=== PATIENT | female | born 1990 | race Caucasian/White ===

== ENCOUNTER 2016-08-24 04:21 | Emergency (ER) | payer MEDICAID, OTHER ==
[~2016-08-24] VITALS: Ht 165.1 cm; Wt 62.6 kg
[2016-08-24] MEDS ORDERED: LIDOCAINE 1% INJ 20 ML (XYLOCAINE) VIAL INJ STA (04:34)
[2016-08-24] MEDS ORDERED: L.E.T. SYRINGE 5 ML MM STA (04:34)
--- NOTE | 2016-08-24 04:42 | ED Lower Extremity ---
General Stated Complaint: RT FOOT INJURY,LAC Source: patient Exam Limitations: no limitations History of Present Illness Time seen by provider: 04:30 Initial Comments Here with laceration to the right foot medially at the bridge. States that she stepped on a broken cup. Denies other injury. Tetanus up-to-date. Onset: just prior to arrival Severity: moderate Method of Injury: incised Modifying Factors: Improves With Immobilization, Worse With Movement Allergies and Home Medications Allergies Coded Allergies: Iodine and Iodide Containing Produc (Verified Allergy, Unknown, 08/24/16) latex (Verified Allergy, Unknown, 08/24/16) povidone-iodine (Verified Allergy, Unknown, 08/24/16) soap (Verified Allergy, Unknown, 08/24/16) Constitutional: see HPINo chills, No fever Respiratory: no symptoms reported Cardiovascular: no symptoms reported Musculoskeletal: No joint pain, muscle pain Skin: see HPINo change in color, lesions Past Wmmkssq-Jrcnnb-Ratghg Hx Patient Social History Alcohol Use: Denies Use Recreational Drug Use: No Smoking Status: Current Everyday Smoker Recent Foreign Travel: No Contact w/Someone Who Travel: No Surgeries HX Surgeries: No Respiratory Hx Respiratory Disorders: No Cardiovascular Hx Cardiac Disorders: No Neurological Hx Neurological Disorders: No Genitourinary Hx Genitourinary Disorders: No Gastrointestinal Hx Gastrointestinal Disorders: No Musculoskeletal Hx Musculoskeletal Disorders: No Endocrine Hx Endocrine Disorders: No HEENT HX ENT Disorders: No Cancer Hx Cancer: No Psychosocial Hx Psychiatric Problems: Yes Behavioral Health Disorders: Anxiety, Depression Reviewed Nursing Assessment Reviewed/Agree w Nursing PMH: Yes Physical Exam Vital Signs Vital Sign - Last 12Hours 08/24/16 04:28 Temp 97.4 Pulse 69 Resp 20 B/P 122/87 Pulse Ox 98 O2 Delivery Room Air Capillary Refill : General Appearance: WD/WN no apparent distress Cardiovascular: regular rate, rhythm no murmur Respiratory: lungs clear normal breath sounds Feet: right foot other (3 cm laceration to the medial aspect of the foot at the dorsal medial surface. Distal sensation and movement is intact. Bleeding controlled.) Neurologic/Psychiatric: alert oriented x 3 Skin: warm/dry other (laceration as described above.) Laceration Repair : Wound Location: Lower Extremities Other Wound Location Right medial aspect of the foot Wound Length (cm): 3 Wound's Depth, Shape: superficial Wound Explored: contaminated Irrigated w/ Saline (ccs): 250 Betadine Prep?: No (Hibiclens) Anesthesia: 1% Lidocaine Volume Anesthetic (ccs): 5 Wound Debrided: minimal Suture: Prolene Suture Size: 4-0 Number of Sutures: 7 Layer Closure?: 1 Number Deep Layer Sutures: 0 Progress Cleaned with Hibiclens and flushed with copious saline. Suture repair. Covered with antibiotic ointment and dressing. Progress/Results/Core Measures Results/Orders My Orders Orders-GENA DAO MD Let Solution (Let Solution) (08/24/16 04:34) Lidocaine 1% Injection (Xylocaine 1% Inj (08/24/16 04:34) Vital Signs/I&O Vital Sign - Last 12Hours 08/24/16 08/24/16 04:28 04:43 Temp 97.4 97.4 Pulse 69 Resp 20 B/P 122/87 Pulse Ox 98 O2 Delivery Room Air Progress Note : Progress Note Seen and evaluated. LET applied to wound. Further anesthetic with 1 percent lidocaine injected. Wound cleaned and sutured. Discharged home with return precautions. Patient verbalize understanding instructions and agreement with plan. Departure Impression Impression: Primary Impression: Laceration of right foot excluding toes without complication Qualified Code: S91.311A - Laceration without foreign body, right foot, initial encounter Disposition: 01 HOME, SELF-CARE Condition: Improved Departure-Patient Inst. Decision time for Depature: 04:40 Referrals: [facility] (PCP) Primary Care Physician Patient Instructions: Laceration Repair With Stitches (DC) Add. Discharge Instructions: Keep wound clean and dry except for daily mild cleansing of wound. You may shower but do not soak wound in bathtub or any other body of water. Sutures out in 10-12 days. Use antibiotic ointment and Band-Aid over wound daily for the next 5-6 days and then you may cover just with the Band-Aid. Return for worse pain, fever, foul-smelling drainage, red streaks up the leg or other concerns as needed. You may use ibuprofen 800 mg every 8 hours as needed for pain. You may use Tylenol 1000 mg every 8 hours as needed for pain. GENA DAO MD Aug 24, 2016 04:42
[2016-08-24 05:33] VITALS: BP 122/87
== END 2016-08-24 05:33 | disposition home or self-care (01) ==
LOC: ER 04:25
DX: S91.311A Laceration without foreign body, right foot, initial encounter (principal); W25.XXXA Contact with sharp glass, initial encounter; Y99.8 Other external cause status
CPT/HCPCS: 12002

== ENCOUNTER 2020-11-16 22:16 | Emergency (ER) | payer SELFPAY ==
[~2020-11-16] VITALS: Ht 165.1 cm; Wt 58.1 kg
[2020-11-16 22:58] LABS: BASOPHILS # (AUTO) 0.1 10^3/uL (0.0-0.1); BASOPHILS % (AUTO) 1 % (0-10); EOSINOPHILS # (AUTO) 0.2 10^3/uL (0.0-0.3); EOSINOPHILS % (AUTO) 3 % (0-10); HEMATOCRIT 42 % (35-52); HEMOGLOBIN 14.2 g/dL (11.5-16.0); LYMPHOCYTES # (AUTO) 2.2 10^3/uL (1.0-4.0); LYMPHOCYTES % (AUTO) 29 % (12-44); MEAN CORPUSCULAR HEMOGLOBIN 31 pg (25-34); MEAN CORPUSCULAR HGB CONC 34 g/dL (32-36); MEAN CORPUSCULAR VOLUME 91 fL (80-99); MEAN PLATELET VOLUME 10.9 fL (9.0-12.2); MONOCYTES # (AUTO) 0.6 10^3/uL (0.0-1.0); MONOCYTES % (AUTO) 8 % (0-12); NEUTROPHILS # (AUTO) 4.5 10^3/uL (1.8-7.8); NEUTROPHILS % (AUTO) 59 % (42-75); PLATELET COUNT 249 10^3/uL (130-400); WHITE BLOOD COUNT 7.6 10^3/uL (4.3-11.0)
[2020-11-16 23:04] LABS: ALANINE AMINOTRANSFERASE 20 U/L (0-55); ALBUMIN 3.2 GM/DL (3.2-4.5); ALKALINE PHOSPHATASE 101 U/L (40-136); BILIRUBIN,TOTAL 0.1 MG/DL (0.1-1.0); BUN/CREATININE RATIO 18; CALCIUM 8.9 MG/DL (8.5-10.1); CARBON DIOXIDE 22 MMOL/L (21-32); CHLORIDE 106 MMOL/L (98-107); CREATININE SERUM 1.04 MG/DL (0.60-1.30); GFR ESTIMATED > 60; GLUCOSE 96 MG/DL (70-105); SODIUM 137 MMOL/L (135-145); TOTAL PROTEIN 6.1 GM/DL (6.4-8.2)
[2020-11-16 23:08] LABS: AMPHETAMINE SCREEN, URINE NEGATIVE (NEGATIVE); BARBITURATE SCREEN URINE NEGATIVE (NEGATIVE); BENZODIAZEPINES SCREEN URINE NEGATIVE (NEGATIVE); CANNABINOID SCREEN, URINE NEGATIVE (NEGATIVE); COCAINE SCREEN URINE NEGATIVE (NEGATIVE); METHADONE STAT NEGATIVE (NEGATIVE); METHAMPHETAMINE SCREEN URINE S NEGATIVE (NEGATIVE); OPIATE SCREEN URINE NEGATIVE (NEGATIVE); OXYCODONE STAT NEGATIVE (NEGATIVE); PROPOXYPHENE STAT NEGATIVE (NEGATIVE); TRICYCLIC ANTIDEPRESSANTS SCRE NEGATIVE (NEGATIVE)
[2020-11-17] MEDS ORDERED: FLUT9.9S NS (00:14)
[2020-11-17] MEDS ORDERED: AMOX-358 PO (00:14)
[2020-11-17] MEDS ORDERED: PRD20T PO (00:14)
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
[2020-11-17] MEDS ORDERED: KETOROLAC 60 MG/2 ML VIAL IM ONE (00:15)
[2020-11-17 00:43] VITALS: BP 138/90
--- NOTE | 2020-11-17 07:12 | Diagnostic Imaging Report ---
PROCEDURE: CT head without contrast. TECHNIQUE: Multiple contiguous axial images were obtained through the brain without the use of intravenous contrast. Auto Exposure Controls were utilized during the CT exam to meet ALARA standards for radiation dose reduction. INDICATION: Hypertension, headache. CORRELATION: None FINDINGS: There is no midline shift or mass effect. The ventricles and sulci are unremarkable. No evidence for acute intracranial hemorrhage, abnormal extra-axial fluid collections or cerebral edema is present. The basilar cisterns are unremarkable. The bony calvarium is intact. Moderate fluid and/or thickening within left maxillary sinus. IMPRESSION: Negative appearing noncontrast CT of the head. Likely acute on chronic left maxillary sinusitis. Initial report was provided by [facility]. Dictated by: Dictated on workstation # [id number]
== END 2020-11-17 00:43 | disposition home or self-care (01) ==
LOC: EDUNIT# 22:16 → ER 22:17
DX: J01.00 Acute maxillary sinusitis, unspecified (principal); R03.0 Elevated blood-pressure reading, without diagnosis of hypertension; F17.210 Nicotine dependence, cigarettes, uncomplicated; Z59.0 Homelessness
CPT/HCPCS: 70450; 80053; 80306; 84703; 85025; 93005; 93041; 99284; G0480; 36415; 80320

== ENCOUNTER 2021-11-25 18:19 | Emergency (ER) | payer SELFPAY ==
[~2021-11-25] VITALS: Ht 156 cm; Wt 46.0 kg
[~2021-11-25 18:19] MED LIST: AMOX-358 PO; FLUT9.9S NS; PRD20T PO
[2021-11-25 18:20] VITALS: BP 133/103
--- NOTE | 2021-11-25 18:31 | ED General ---
General Chief Complaint: Neurological Problems Stated Complaint: SEIZURE Nursing Triage Note: PT BROUGHT IN BY [facility] FROM [facility] WITH COMPLAINT OF SEIZURE. PT WAS IN WAITING ROOM WHEN SHE HAD A SEIZURE. PT ADMITS TO USING METH AND HEROIN TODAY. SIGNIFICANT OTHER STATES TOOK PT TO [facility] FOR MEDICATION REFILL. History of Present Illness Date Seen by Provider: Nov 25, 2021 Time Seen by Provider: 18:31 Initial Comments 31-year-old female with PMH of BPD/drug abuse, is brought in by EMS from the clinic with complaints of possible seizure in the waiting room of the clinic. Patient's boyfriend is with her and states that he is unsure of her past medical history except that he knows that she uses meth, but he thought she was clean for the past 3 days. But patient told him that she used meth and heroin today, and patient's boyfriend is surprised about the heroin because he does not know her to use that. Patient boyfriend states that she has not been taking her medications for the past 1 year, and he is unsure about her PMH. Patient appears to be altered and an unreliable historian at this time due to drug usage. Patient is complaining about abdominal pain. Allergies and Home Medications Allergies Coded Allergies: Iodine and Iodide Containing Produc (Verified Allergy, Unknown, 08/24/16) latex (Verified Allergy, Unknown, 08/24/16) povidone-iodine (Verified Allergy, Unknown, 08/24/16) soap (Verified Allergy, Unknown, 08/24/16) Patient Home Medication List Home Medication List Reviewed: Yes Amoxicillin/Potassium Clav (Augmentin 875-125 Tablet) 1 Each Tablet, 1 EACH PO BID Prescribed by: SHANNA KAY on 11/17/2013 Fluticasone Propionate (Flonase Allergy Relief) 9.9 Ml [place].susp, 2 SPRAY NS DAILY Prescribed by: SHANNA KAY on 11/17/2013 Prednisone (Prednisone) 20 Mg Tab, 40 MG PO DAILY Prescribed by: SHANNA KAY on 11/17/2013 Review of Systems Review of Systems Constitutional: other (confusion) EENTM: no symptoms reported Respiratory: no symptoms reported Cardiovascular: no symptoms reported Gastrointestinal: RLQ, LLQ Genitourinary: no symptoms reported Musculoskeletal: no symptoms reported Skin: no symptoms reported Psychiatric/Neurological: Other (drug use) Hematologic/Lymphatic: No Symptoms Reported Immunological/Allergic: no symptoms reported Past Dlvemte-Ltqjkx-Vpjqhz Hx Patient Social History Tobacco Use?: Yes Use of E-Cig and/or Vaping dev: No Substance use?: Yes Substance type: Amphetamines, Methamphetamine, Opiates/Opioids Additional substance use comme: HEROIN Alcohol Use?: No Pt feels they are or have been: No Immunizations Up To Date Tetanus Booster (TDap): Less than 5yrs Seasonal Allergies Seasonal Allergies: No Past Medical History Surgeries: Yes ( X 1) Section, Gallbladder Respiratory: No Cardiac: No Neurological: No 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 10/2020, THEN [facility] [place] AT DISMISSAL Physical Exam Vital Signs Vital Signs - First Documented 11/25/21 18:20 Temp 36.3 Pulse 73 Resp 12 B/P (MAP) 133/103 (113) Pulse Ox 98 O2 Delivery Room Air Capillary Refill : Less Than 3 Seconds Height, Weight, BMI Height: 5'5" Weight: 138lbs. oz. 62.352502va; 18.00 BMI Method:Estimated General Appearance: Thin, Other (confusion) Eyes: Bilateral Eye Normal Inspection, Bilateral Eye PERRL, Bilateral Eye EOMI HEENT: PERRL/EOMI Neck: Full Range of Motion, Normal Inspection, Non Tender, Supple Respiratory: Chest Non Tender, Lungs Clear, Normal Breath Sounds, No Re spiratory Distress Cardiovascular: Regular Rate, Rhythm, No Edema Gastrointestinal: Normal Bowel Sounds, No Organomegaly, Soft, Tenderness (RLQ and LLQ tenderness) Back: Normal Inspection, No CVA Tenderness Extremity: Normal Range of Motion Neurologic/Psychiatric: Alert, No Motor/Sensory Deficits, Normal 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, 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 Norm as Tested, Other (Altered mental status and AOx 2) Skin: Normal Color, Warm/Dry Procedures/Interventions Suture Size: 4-0 Progress/Results/Core Measures Suspected Sepsis SIRS Temperature: Pulse: 73 Respiratory Rate: 12 Laboratory Tests 11/25/21 18:25: White Blood Count 10.8 Blood Pressure 133 /103 Mean: 113 Laboratory Tests 11/25/21 18:25: Creatinine 1.08, Platelet Count 300, Total Bilirubin 0.2 Results/Orders Lab Results Laboratory Tests Test 11/25/21 18:25 11/25/21 19:08 Range/Units White Blood Count 10.8 4.3-11.0 10^3/uL Red Blood Count 4.48 3.80-5.11 10^6/uL Hemoglobin 14.1 11.5-16.0 g/dL Hematocrit 41 35-52 % Mean Corpuscular Volume 91 80-99 fL Mean Corpuscular Hemoglobin 32 25-34 pg Mean Corpuscular Hemoglobin Concent 35 32-36 g/dL Red Cell Distribution Width 12.5 10.0-14.5 % Platelet Count 300 130-400 10^3/uL Mean Platelet Volume 11.5 9.0-12.2 fL Immature Granulocyte % (Auto) 0 % Neutrophils (%) (Auto) 58 42-75 % Lymphocytes (%) (Auto) 28 12-44 % Monocytes (%) (Auto) 9 0-12 % Eosinophils (%) (Auto) 4 0-10 % Basophils (%) (Auto) 1 0-10 % Neutrophils # (Auto) 6.3 1.8-7.8 10^3/uL Lymphocytes # (Auto) 3.0 1.0-4.0 10^3/uL Monocytes # (Auto) 0.9 0.0-1.0 10^3/uL Eosinophils # (Auto) 0.5 H 0.0-0.3 10^3/uL Basophils # (Auto) 0.1 0.0-0.1 10^3/uL Immature Granulocyte # (Auto) 0.0 0.0-0.1 10^3/uL Sodium Level 137 135-145 MMOL/L Potassium Level 4.0 3.6-5.0 MMOL/L Chloride Level 104 98-107 MMOL/L Carbon Dioxide Level 23 21-32 MMOL/L Anion Gap 10 5-14 MMOL/L Blood Urea Nitrogen 21 H 7-18 MG/DL Creatinine 1.08 0.60-1.30 MG/DL Estimat Glomerular Filtration Rate 71 BUN/Creatinine Ratio 19 Glucose Level 128 H 70-105 MG/DL Calcium Level 8.7 8.5-10.1 MG/DL Corrected Calcium 9.5 8.5-10.1 MG/DL Magnesium Level 2.2 1.6-2.4 MG/DL Total Bilirubin 0.2 0.1-1.0 MG/DL Aspartate Amino Transf (AST/SGOT) 40 H 5-34 U/L Alanine Aminotransferase (ALT/SGPT) 34 0-55 U/L Alkaline Phosphatase 108 40-136 U/L Troponin I < 0.028 <0.028 NG/ML Total Protein 5.8 L 6.4-8.2 GM/DL Albumin 3.0 L 3.2-4.5 GM/DL Lipase 316 H 8-78 U/L Acetaminophen Level < 10 L 10-30 UG/ML Serum Alcohol 15 H <10 MG/DL Urine Color YELLOW Urine Clarity CLEAR Urine pH 6.0 5-9 Urine Specific [place] 1.025 H 1.016-1.022 Urine Protein 3+ H NEGATIVE Urine Glucose (UA) NEGATIVE NEGATIVE Urine Ketones NEGATIVE NEGATIVE Urine Nitrite NEGATIVE NEGATIVE Urine Bilirubin NEGATIVE NEGATIVE Urine Urobilinogen 0.2 < = 1.0 MG/DL Urine Leukocyte Esterase NEGATIVE NEGATIVE Urine RBC (Auto) TRACE-I H NEGATIVE Urine RBC 0-2 /HPF Urine WBC 0-2 /HPF Urine Squamous Epithelial Cells 2-5 /HPF Urine Renal Epithelial Cells NONE /HPF Urine Crystals NONE /LPF Urine Bacteria TRACE /HPF Urine Casts NONE /LPF Urine Mucus NEGATIVE /LPF Urine Culture Indicated NO Urine Test NEGATIVE NEGATIVE Urine Opiates Screen NEGATIVE NEGATIVE Urine Oxycodone Screen NEGATIVE NEGATIVE Urine Methadone Screen NEGATIVE NEGATIVE Urine Propoxyphene Screen NEGATIVE NEGATIVE Urine Barbiturates Screen NEGATIVE NEGATIVE Ur Tricyclic Antidepressants Screen NEGATIVE NEGATIVE Urine Phencyclidine Screen NEGATIVE NEGATIVE Urine Amphetamines Screen POSITIVE H NEGATIVE Urine Methamphetamines Screen POSITIVE H NEGATIVE Urine Benzodiazepines Screen NEGATIVE NEGATIVE Urine Cocaine Screen NEGATIVE NEGATIVE Urine Cannabinoids Screen POSITIVE H NEGATIVE My Orders Orders - YAHIR CASTLE MD Acetaminophen (11/25/21 18:44) Alcohol (11/25/21 18:44) Cbc With Automated Diff (11/25/21 18:44) Comprehensive Metabolic Panel (11/25/21 18:44) Drug Screen Stat (Urine) (11/25/21 18:44) Hcg,Qualitative Urine (11/25/21 18:44) Lipase (11/25/21 18:44) Magnesium (11/25/21 18:44) Ua Culture If Indicated (11/25/21 18:44) Troponin I Dustin (11/25/21 18:44) Ed Iv/Invasive Line Start (11/25/21 18:46) Ns Iv 1000 Ml (Sodium Chloride 0.9%) (11/25/21 19:00) Prolactin (11/25/21 19:03) Ekg Tracing (11/25/21 19:08) Continuous Ekg Monitoring (11/25/21 19:08) Vital Signs/I&O 11/25/21 11/25/21 18:20 19:35 Temp 36.3 Pulse 73 Resp 12 B/P (MAP) 133/103 (113) 173/114 Pulse Ox 98 O2 Delivery Room Air 11/26/21 00:00 Intake Total 20 ml Balance 20 ml Capillary Refill : Less Than 3 Seconds Blood Pressure Mean: 113 Progress Note : Progress Note 1. DRUG INTOXICATION/ ALTERED MENTAL STATUS: - CT HEAD - UDS/ UA: positive for methamphetamines and marijuana - Labs unremarkable except for s. alcohol of 15 - NS IVF bolus - Pt left AMA in spite of risks and benefits explained. Her boyfriend tried to convince her to stay but she will not listen. 2. POSSIBLE SEIZURE: - Work-up as above - Since pt's episode occurred within 20-30 min ago, will check prolactin level 3. ABDOMINAL PAIN: - CT ABD & PELVIS: Not done since pt left AMA Diagnostic Imaging Diagonstic Imaging: CT Plain Films/CT/US/NM/MRI: abdomen, head Departure Impression Primary Impression: Drug intoxication Qualified Codes: F19.921 - Other psychoactive substance use, unspecified with intoxication with delirium Additional Impression: Left against medical advice Disposition: 07 AGAINST MEDICAL ADVICE Condition: Against Medical Advice Departure-Patient Inst. Referrals: NO,LOCAL PHYSICIAN (PCP/Family) Primary Care Physician YAHIR CASTLE MD Nov 25, 2021 18:31
[2021-11-25 18:50] LABS: BASOPHILS # (AUTO) 0.1 10^3/uL (0.0-0.1); BASOPHILS % (AUTO) 1 % (0-10); EOSINOPHILS # (AUTO) 0.5 10^3/uL (0.0-0.3); EOSINOPHILS % (AUTO) 4 % (0-10); HEMATOCRIT 41 % (35-52); HEMOGLOBIN 14.1 g/dL (11.5-16.0); LYMPHOCYTES % (AUTO) 28 % (12-44); MEAN CORPUSCULAR HEMOGLOBIN 32 pg (25-34); MEAN CORPUSCULAR HGB CONC 35 g/dL (32-36); MEAN CORPUSCULAR VOLUME 91 fL (80-99); MEAN PLATELET VOLUME 11.5 fL (9.0-12.2); MONOCYTES # (AUTO) 0.9 10^3/uL (0.0-1.0); MONOCYTES % (AUTO) 9 % (0-12); NEUTROPHILS # (AUTO) 6.3 10^3/uL (1.8-7.8); NEUTROPHILS % (AUTO) 58 % (42-75); PLATELET COUNT 300 10^3/uL (130-400); WHITE BLOOD COUNT 10.8 10^3/uL (4.3-11.0)
[2021-11-25] MEDS ORDERED: NS IV 1000 ML 1,000 ML IV SCH (19:00)
[2021-11-25 19:04] LABS: CHLORIDE 104 MMOL/L (98-107); SODIUM 137 MMOL/L (135-145)
[2021-11-25 19:06] LABS: CALCIUM 8.7 MG/DL (8.5-10.1)
[2021-11-25 19:07] LABS: GLUCOSE 128 MG/DL (70-105); TOTAL PROTEIN 5.8 GM/DL (6.4-8.2)
[2021-11-25 19:08] LABS: CARBON DIOXIDE 23 MMOL/L (21-32)
[2021-11-25 19:09] LABS: BILIRUBIN,TOTAL 0.2 MG/DL (0.1-1.0)
[2021-11-25 19:10] LABS: ALKALINE PHOSPHATASE 108 U/L (40-136)
[2021-11-25 19:11] LABS: CREATININE SERUM 1.08 MG/DL (0.60-1.30); GFR ESTIMATED 71
[2021-11-25 19:12] LABS: BILIRUBIN,URINE NEGATIVE (NEGATIVE); CLARITY,URINE CLEAR; COLOR,URINE YELLOW; GLUCOSE, URINE (UA) NEGATIVE (NEGATIVE); KETONES,URINE NEGATIVE (NEGATIVE); LEUKOCYTE ESTERASE ,URINE NEGATIVE (NEGATIVE); NITRITE,URINE NEGATIVE (NEGATIVE); PROTEIN,URINE 3+ (NEGATIVE)
[2021-11-25 19:12] LABS: ACETAMINOPHEN < 10 UG/ML (10-30); BUN/CREATININE RATIO 19
[2021-11-25 19:13] LABS: ALANINE AMINOTRANSFERASE 34 U/L (0-55)
[2021-11-25 19:14] LABS: MAGNESIUM 2.2 MG/DL (1.6-2.4)
[2021-11-25 19:15] LABS: LIPASE 316 U/L (8-78)
[2021-11-25 19:19] LABS: BACTERIA,URINE TRACE /HPF; RBC,URINE 0-2 /HPF; WBC,URINE 0-2 /HPF
[2021-11-25 19:21] LABS: HCG,QUALITATIVE URINE NEGATIVE (NEGATIVE)
[2021-11-25 19:27] LABS: AMPHETAMINE SCREEN, URINE POSITIVE (NEGATIVE); BARBITURATE SCREEN URINE NEGATIVE (NEGATIVE); BENZODIAZEPINES SCREEN URINE NEGATIVE (NEGATIVE); CANNABINOID SCREEN, URINE POSITIVE (NEGATIVE); COCAINE SCREEN URINE NEGATIVE (NEGATIVE); METHADONE STAT NEGATIVE (NEGATIVE); OPIATE SCREEN URINE NEGATIVE (NEGATIVE); OXYCODONE STAT NEGATIVE (NEGATIVE); PROPOXYPHENE STAT NEGATIVE (NEGATIVE); TRICYCLIC ANTIDEPRESSANTS SCRE NEGATIVE (NEGATIVE)
== END 2021-11-25 19:57 ==
LOC: EDUNIT# 18:19 → ER 18:22
DX: F12.121 Cannabis abuse with intoxication delirium (principal); F15.121 Other stimulant abuse with intoxication delirium; R10.31 Right lower quadrant pain; R10.32 Left lower quadrant pain; Z91.14 Patient's other noncompliance with medication regimen
CPT/HCPCS: 80053; 80306; 81000; 83690; 83735; 84146; 84484; 84703; 85025; 93005; 99283; G0480 ×2; 36415; 80320; 80329

== ENCOUNTER 2021-11-26 04:12 | Observation (INO) | payer SELFPAY ==
[~2021-11-26] VITALS: Ht 165.1 cm; Wt 46.5 kg
--- NOTE | 2021-11-26 04:21 | ED General ---
General Chief Complaint: General Problems/Pain Stated Complaint: AMS History of Present Illness Date Seen by Provider: Nov 26, 2021 Time Seen by Provider: 04:20 Initial Comments This is pt' second ER visit during my shift. Pt left AMA earlier in the evening. This time pt was brought back by EMS since the police found her wandering around town and seemed confused to them. Boyfriend convinced her to come back to the ER. Pt denies using drugs again after she left AMA. Denies fever, and pt still altered. Unable to obtain a history from pt in this state. Denies fever, abdominal pain, chest pain, nausea, vomiting. NOTE FROM EARLIER VISIT TODAY: 31-year-old female with PMH of BPD/drug abuse, is brought in by EMS from the clinic with complaints of possible seizure in the waiting room of the clinic. Patient's boyfriend is with her and states that he is unsure of her past medical history except that he knows that she uses meth, but he thought she was clean for the past 3 days. But patient told him that she used meth and heroin today, and patient's boyfriend is surprised about the heroin because he does not know her to use that. Patient boyfriend states that she has not been taking her medications for the past 1 year, and he is unsure about her PMH. Patient appe ars to be altered and an unreliable historian at this time due to drug usage. Patient is complaining about abdominal pain. Allergies and Home Medications Allergies Coded Allergies: Iodine and Iodide Containing Produc (Verified Allergy, Unknown, 08/24/16) latex (Verified Allergy, Unknown, 08/24/16) povidone-iodine (Verified Allergy, Unknown, 08/24/16) soap (Verified Allergy, Unknown, 08/24/16) Patient Home Medication List Home Medication List Reviewed: Yes Amoxicillin/Potassium Clav (Augmentin 875-125 Tablet) 1 Each Tablet, 1 EACH PO BID Prescribed by: SHANNA KAY on 11/17/2013 Fluticasone Propionate (Flonase Allergy Relief) 9.9 Ml [place].susp, 2 SPRAY NS DAILY Prescribed by: SHANNA KAY on 11/17/2013 Prednisone (Prednisone) 20 Mg Tab, 40 MG PO DAILY Prescribed by: SHANNA KAY on 11/17/2013 Review of Systems Review of Systems Constitutional: other (confused) EENTM: no symptoms reported Respiratory: no symptoms reported Cardiovascular: no symptoms reported Gastrointestinal: no symptoms reported Genitourinary: no symptoms reported Musculoskeletal: no symptoms reported Skin: no symptoms reported Psychiatric/Neurological: Other (AMS) Hematologic/Lymphatic: No Symptoms Reported Immunological/Allergic: no symptoms reported Past Bccrmuw-Cxspnu-Makzvd Hx Immunizations Up To Date Tetanus Booster (TDap): Less than 5yrs Seasonal Allergies Seasonal Allergies: No Past Medical History Surgeries: Yes ( X 1) Section, Gallbladder Respiratory: No Cardiac: No Neurological: No 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 oz. 62.502536ue; 18.00 BMI Method:Estimated General Appearance: Other (confused) Eyes: Bilateral Eye Normal Inspection, Bilateral Eye PERRL, Bilateral Eye EOMI HEENT: PERRL/EOMI Neck: Full Range of Motion, Normal Inspection, Non Tender, Supple Respiratory: Chest Non Tender, Lungs Clear Cardiovascular: Regular Rate, Rhythm Gastrointestinal: Normal Bowel Sounds, Soft Neurologic/Psychiatric: Alert, No Motor/Sensory Deficits, Other (AOx2, uncooperative, altered mental status) Skin: Normal Color Procedures/Interventions Suture Size: 4-0 Progress/Results/Core Measures Suspected Sepsis SIRS Temperature: Pulse: Respiratory Rate: Laboratory Tests 11/26/21 04:32: White Blood Count 10.3 Blood Pressure / Mean: Laboratory Tests 11/26/21 04:32: Creatinine 1.03, Platelet Count 306, Total Bilirubin 0.4 Results/Orders Lab Results Laboratory Tests Test 11/26/21 04:32 Range/Units White Blood Count 10.3 4.3-11.0 10^3/uL Red Blood Count 4.51 3.80-5.11 10^6/uL Hemoglobin 14.0 11.5-16.0 g/dL Hematocrit 42 35-52 % Mean Corpuscular Volume 92 80-99 fL Mean Corpuscular Hemoglobin 31 25-34 pg Mean Corpuscular Hemoglobin Concent 34 32-36 g/dL Red Cell Distribution Width 12.5 10.0-14.5 % Platelet Count 306 130-400 10^3/uL Mean Platelet Volume 11.1 9.0-12.2 fL Immature Granulocyte % (Auto) 0 % Neutrophils (%) (Auto) 61 42-75 % Lymphocytes (%) (Auto) 26 12-44 % Monocytes (%) (Auto) 8 0-12 % Eosinophils (%) (Auto) 3 0-10 % Basophils (%) (Auto) 1 0-10 % Neutrophils # (Auto) 6.3 1.8-7.8 10^3/uL Lymphocytes # (Auto) 2.7 1.0-4.0 10^3/uL Monocytes # (Auto) 0.9 0.0-1.0 10^3/uL Eosinophils # (Auto) 0.4 H 0.0-0.3 10^3/uL Basophils # (Auto) 0.1 0.0-0.1 10^3/uL Immature Granulocyte # (Auto) 0.0 0.0-0.1 10^3/uL Sodium Level 139 135-145 MMOL/L Potassium Level 4.1 3.6-5.0 MMOL/L Chloride Level 106 98-107 MMOL/L Carbon Dioxide Level 23 21-32 MMOL/L Anion Gap 10 5-14 MMOL/L Blood Urea Nitrogen 16 7-18 MG/DL Creatinine 1.03 0.60-1.30 MG/DL Estimat Glomerular Filtration Rate 75 BUN/Creatinine Ratio 16 Glucose Level 87 70-105 MG/DL Calcium Level 8.7 8.5-10.1 MG/DL Corrected Calcium 9.5 8.5-10.1 MG/DL Magnesium Level 2.2 1.6-2.4 MG/DL Total Bilirubin 0.4 0.1-1.0 MG/DL Aspartate Amino Transf (AST/SGOT) 37 H 5-34 U/L Alanine Aminotransferase (ALT/SGPT) 34 0-55 U/L Alkaline Phosphatase 97 40-136 U/L Total Protein 5.9 L 6.4-8.2 GM/DL Albumin 3.0 L 3.2-4.5 GM/DL Salicylates Level < 5.0 L 5.0-20.0 MG/DL Acetaminophen Level < 10 L 10-30 UG/ML Serum Alcohol < 10 <10 MG/DL My Orders Orders - YAHIR CASTLE MD Ed Iv/Invasive Line Start (11/26/21 04:21) Ns Iv 1000 Ml (Sodium Chloride 0.9%) (11/26/21 04:30) Acetaminophen (11/26/21 04:21) Alcohol (11/26/21 04:21) Cbc With Automated Diff (11/26/21 04:21) Comprehensive Metabolic Panel (11/26/21 04:21) Magnesium (11/26/21 04:21) Salicylate (11/26/21 04:21) Continuous Ekg Monitoring (11/26/21 04:21) Ekg Tracing (11/26/21 04:21) Vital Signs/I&O 11/26/21 04:32 Temp 37.0 Pulse 70 Resp 18 B/P (MAP) 148/102 (117) Pulse Ox 97 O2 Delivery Room Air Capillary Refill : Progress Note : Progress Note 1. ALTERED MENTAL STATUS: METHAMPHETAMINE INTOXICATION/ MARIJUANA ABUSE: - UDS positive for the above - Labs unremarkable - EKG non-ischemic and NSR - NS IVF bolus - Will admit to Observation . Discussed with Dr Nicholas. Departure Communication (Admissions) Time/Spoke to Admitting Phy: 05:[address] Nicholas and will admit for observation Impression Primary Impression: Altered mental status associated with intoxication Additional Impressions: Methamphetamine intoxication Drug abuse and dependence Marijuana abuse Disposition: 30 STILL A PATIENT Condition: Stable Admissions Decision to Admit Reason: Admit from ER (General) Decision to Admit/Date: Nov 26, 2021 Time/Decision to Admit Time: 05:15 Departure-Patient Inst. Referrals: NO,LOCAL PHYSICIAN (PCP/Family) Primary Care Physician YAHIR CASTLE MD Nov 26, 2021 04:21
[2021-11-26] MEDS: NS IV 1000 ML 1,000 ML IV SCH ×7 (04:35→21:52)
[2021-11-26 04:46] LABS: BASOPHILS # (AUTO) 0.1 10^3/uL (0.0-0.1); BASOPHILS % (AUTO) 1 % (0-10); EOSINOPHILS # (AUTO) 0.4 10^3/uL (0.0-0.3); EOSINOPHILS % (AUTO) 3 % (0-10); HEMATOCRIT 42 % (35-52); LYMPHOCYTES # (AUTO) 2.7 10^3/uL (1.0-4.0); LYMPHOCYTES % (AUTO) 26 % (12-44); MEAN CORPUSCULAR HEMOGLOBIN 31 pg (25-34); MEAN CORPUSCULAR HGB CONC 34 g/dL (32-36); MEAN CORPUSCULAR VOLUME 92 fL (80-99); MEAN PLATELET VOLUME 11.1 fL (9.0-12.2); MONOCYTES # (AUTO) 0.9 10^3/uL (0.0-1.0); MONOCYTES % (AUTO) 8 % (0-12); NEUTROPHILS # (AUTO) 6.3 10^3/uL (1.8-7.8); NEUTROPHILS % (AUTO) 61 % (42-75); PLATELET COUNT 306 10^3/uL (130-400); WHITE BLOOD COUNT 10.3 10^3/uL (4.3-11.0)
[2021-11-26 05:06] LABS: CHLORIDE 106 MMOL/L (98-107); POTASSIUM 4.1 MMOL/L (3.6-5.0); SODIUM 139 MMOL/L (135-145)
[2021-11-26 05:08] LABS: CALCIUM 8.7 MG/DL (8.5-10.1)
[2021-11-26 05:09] LABS: GLUCOSE 87 MG/DL (70-105); TOTAL PROTEIN 5.9 GM/DL (6.4-8.2)
[2021-11-26 05:10] LABS: CARBON DIOXIDE 23 MMOL/L (21-32)
[2021-11-26 05:11] LABS: BILIRUBIN,TOTAL 0.4 MG/DL (0.1-1.0)
[2021-11-26 05:13] LABS: ALKALINE PHOSPHATASE 97 U/L (40-136); CREATININE SERUM 1.03 MG/DL (0.60-1.30); GFR ESTIMATED 75
[2021-11-26 05:14] LABS: BUN/CREATININE RATIO 16
[2021-11-26 05:15] LABS: SALICYLATE < 5.0 MG/DL (5.0-20.0)
[2021-11-26 05:16] LABS: ALANINE AMINOTRANSFERASE 34 U/L (0-55); MAGNESIUM 2.2 MG/DL (1.6-2.4)
[2021-11-26 05:17] LABS: ACETAMINOPHEN < 10 UG/ML (10-30)
[2021-11-26 06:52] VITALS: BP 162/86
[2021-11-26 06:58] VITALS: BP 162/86
[2021-11-26] MEDS ORDERED: CATHETER FLUSH 10 ML SYR IVP PRN (07:00)
[2021-11-26] MEDS ORDERED: RT-ALBUTEROL SULF 2.5 MG/3 ML PRE-MIX VIAL INH PRN (07:15)
[2021-11-26 07:18] VITALS: BP 154/80
--- NOTE | 2021-11-26 09:16 | History & Physical-Hospitalist ---
History of Present Illness HPI/Chief Complaint Patient is a 31-year-old female who presented to the ER due to altered mental status and possible seizure. She is unable to provide me any history. She does briefly open her eyes to physical stimuli but otherwise is quickly back asleep. Because of this all history is obtained from the chart. Apparently she was in the emergency department 2 times last night due to altered mental status. Apparently there was a question of whether she had had a seizure as well. She reported to her boyfriend that she had done heroin and meth. Her UDS on the first ER visit was positive for amphetamines and methamphetamines and not opioids. She was admitted for observation due to altered mental status. Source: patient Exam Limitations: clinical condition Date Seen 11/26/21 Time Seen by a Provider: 09:10 Attending Physician No,Local Physician PCP Admitting Physician: Hussein Nicholas MD Attending Physician: Hussein Nicholas MD Referring Physician Date of Admission Nov 26, 2021 at 05:55 Home Medications & Allergies Home Medications Reviewed patient Home Medication Reconciliation performed by pharmacy medication reconciliations automobile glass technician and/or nursing. Patients Allergies have been reviewed. Allergies Allergies Coded Allergies Iodine and Iodide Containing Produc (Verified Allergy, Unknown, 08/24/16) latex (Verified Allergy, Unknown, 08/24/16) povidone-iodine (Verified Allergy, Unknown, 08/24/16) soap (Verified Allergy, Unknown, 08/24/16) Past Ymjsmbq-Ftpdsk-Xqesvy Hx Patient Social History Tobacco Use?: Yes Substance use?: Yes Substance frequency: Daily Alcohol Use?: Yes Immunizations Up To Date Tetanus Booster (TDap): Unknown Seasonal Allergies Seasonal Allergies: No Current Status status: Unable to obtain status: Unable to obtain Advance Directives: Unable to obtain Primary Language: Serbian Past Medical History Surgeries: Section, Gallbladder Sexually Transmitted Disease: Yes (HPV) HIV/AIDS: No Anxiety, Depression Blood Disorders: No Family Medical History Reviewed Nursing Family Hx ADDITIONAL SOCIAL HISTORY: PT IS HOMELESS OF 11/16/20 WAS IN [facility] 10/2020, THEN IN [facility] [place] AT DISMISSAL Review of Systems Constitutional: see HPI Physical Exam Physical Exam Vital Signs Vital Signs - First Documented 11/26/21 04:32 Temp 37.0 Pulse 70 Resp 18 B/P (MAP) 148/102 (117) Pulse Ox 97 O2 Delivery Room Air Capillary Refill : Height, Weight, BMI Height: 5'5" Weight: 138lbs. oz. 62.512172rg; 18.00 BMI Method:Estimated General Appearance: No Apparent Distress (sleeping soundly), Thin HEENT: Moist Mucous Membranes Neck: Normal Inspection, Supple Respiratory: Lungs Clear, No Respiratory Distress Cardiovascular: Regular Rate, Rhythm, No JVD, No Murmur Gastrointestinal: Normal Bowel Sounds, Non Tender, Soft Extremity: No Calf Tenderness, No Pedal Edema Neurologic/Psychiatric: Alert, Other (drowsy but opens eyes, protecting airway) Results Results/Procedures Labs Laboratory Tests 11/26/21 04:32 Patient resulted labs reviewed. Assessment/Plan Admission Diagnosis Methamphetamine intoxication Admission Status: Observation Assessment and Plan AMS due to methamphetamine intoxication Likely coming down off methamphetamine Protecting airway but too altered to DC at this time Hopefully will arouse later today and can DC home business services officer consulted Diagnosis/Problems Diagnosis/Problems (1) Methamphetamine intoxication Status: Acute (2) Altered mental status associated with intoxication Status: Acute (3) Marijuana abuse Status: Acute MARLENA ARMIJO MD Nov 26, 2021 09:16
[2021-11-26 11:57] VITALS: BP 168/91
[2021-11-26 15:44] VITALS: BP 157/90
[2021-11-26 19:17] VITALS: BP 143/83
[2021-11-27] VITALS: BP 160/89
[2021-11-27] MEDS: NS IV 1000 ML 1,000 ML IV SCH ×3 (02:10→10:38)
[2021-11-27 04:43] VITALS: BP 150/90
[2021-11-27 07:13] VITALS: BP 178/81
[2021-11-27] MEDS ORDERED: amLODIPine 10 MG (NORVASC) TAB PO SCH (09:00)
[2021-11-27 11:39] VITALS: BP 170/106
[2021-11-27 13:47] VITALS: BP 170/106
--- NOTE | 2021-11-27 17:24 | Discharge Summary ---
Discharge Summary Hospital Course Problems/Dx: (1) Methamphetamine intoxication Status: Acute (2) Altered mental status associated with intoxication Status: Acute (3) Marijuana abuse Status: Acute Hospital Course Date of Admission: Nov 26, 2021 at 05:55 Admission Diagnosis : Altered mental status associated with methamphetamine intoxication Family Physician/Provider: Baldo Bowers Physician Date of Discharge: 11/27/21 Discharge Diagnosis: Altered mental status associated with methamphetamine intoxication Hospital Course: Keri Moffett is a 31 year old female who was admitted with altered mental status associated with methamphetamine intoxication. Her workup was unrevealing other than her urine drug screen positive for methamphetamine and cannabis. She was treated with IV fluids and her symptoms resolved by the following morning. She was encouraged to discontinue methamphetamine and cannabis use. She was discharged home in stable condition. She needs to establish with a primary care physician. Labs and Pending Lab Test: Home Meds Active No Active Prescriptions or Reported Medications Assessment/Pt Instructions See instructions Discharge Planning: <30 minutes discharge planning Discharge Instructions Discharge Diet: No Restrictions Activity as Tolerated: Yes Discharge Physical Examination Vital Signs Vital Signs Date Time Temp Pulse Resp B/P (MAP) Pulse Ox O2 Delivery O2 Flow Rate FiO2 11/27/21 13:47 36.6 72 18 170/106 98 Room Air General Appearance: No Apparent Distress, Thin Respiratory: Lungs Clear, Normal Breath Sounds, No Respiratory Distress Cardiovascular: Regular Rate, Rhythm, No Edema, No Murmur Gastrointestinal: Normal Bowel Sounds, Non Tender, Soft Extremity: Normal Inspection, Non Tender, No Pedal Edema Skin: Normal Color, Warm/Dry Neurologic/Psychiatric: Alert, No Motor/Sensory Deficits Allergies: Coded Allergies: Iodine and Iodide Containing Produc (Verified Allergy, Unknown, 08/24/16) latex (Verified Allergy, Unknown, 08/24/16) povidone-iodine (Verified Allergy, Unknown, 08/24/16) soap (Verified Allergy, Unknown, 08/24/16) Discharge Summary Date of Admission Nov 26, 2021 at 05:55 Date of Discharge Nov 27, 2021 at 13:00 Discharge Date: Nov 27, 2021 Discharge Time: 13:00 Admission Diagnosis Methamphetamine intoxication Discharge Diagnosis (1) Methamphetamine intoxication Status: Acute (2) Altered mental status associated with intoxication Status: Acute (3) Marijuana abuse Status: Acute LULA ARGUELLO MD Nov 27, 2021 17:24
== END 2021-11-27 13:00 | disposition home or self-care (01) ==
LOC: EDUNIT# 04:12 → ER 04:16 → 4TH 05:55
PROVIDERS: ADMIT Internal Medicine; ATTEND Internal Medicine
DX: F15.129 Other stimulant abuse with intoxication, unspecified (principal); F12.10 Cannabis abuse, uncomplicated; R41.82 Altered mental status, unspecified; Z59.00 Homelessness unspecified; Z91.040 Latex allergy status; Z88.8 Allergy status to other drugs, medicaments and biological substances; Z91.048 Other nonmedicinal substance allergy status; Z79.52 Long term (current) use of systemic steroids
CPT/HCPCS: 80053; 83735; 85025; 93005; 96361; 99284; G0480 ×3; 36415; 80320; 80329; G0378

== ENCOUNTER 2022-04-14 22:23 | Observation (INO) | payer SELFPAY ==
[~2022-04-14] VITALS: Ht 165 cm; Wt 47.0 kg
[2022-04-14] MEDS ORDERED: LACTATED RINGERS 1,000 ML IV ONE (22:45)
[2022-04-14] MEDS ORDERED: ONDANSETRON 4 MG/2 ML (SDV) Z0FRAN IVP ONE (22:45)
[2022-04-14 22:49] LABS: BILIRUBIN,URINE NEGATIVE (NEGATIVE); CLARITY,URINE CLEAR; COLOR,URINE YELLOW; GLUCOSE, URINE (UA) NEGATIVE (NEGATIVE); KETONES,URINE NEGATIVE (NEGATIVE); LEUKOCYTE ESTERASE ,URINE NEGATIVE (NEGATIVE); NITRITE,URINE NEGATIVE (NEGATIVE); PH,URINE 7.5 (5-9); PROTEIN,URINE 3+ (NEGATIVE)
[2022-04-14 23:00] LABS: BASOPHILS # (AUTO) 0.1 10^3/uL (0.0-0.1); BASOPHILS % (AUTO) 1 % (0-10); EOSINOPHILS # (AUTO) 0.4 10^3/uL (0.0-0.3); EOSINOPHILS % (AUTO) 3 % (0-10); HEMATOCRIT 27 % (35-52); HEMOGLOBIN 9.3 g/dL (11.5-16.0); LYMPHOCYTES # (AUTO) 2.6 10^3/uL (1.0-4.0); LYMPHOCYTES % (AUTO) 23 % (12-44); MEAN CORPUSCULAR HEMOGLOBIN 32 pg (25-34); MEAN CORPUSCULAR HGB CONC 35 g/dL (32-36); MEAN CORPUSCULAR VOLUME 92 fL (80-99); MEAN PLATELET VOLUME 10.8 fL (9.0-12.2); MONOCYTES # (AUTO) 0.8 10^3/uL (0.0-1.0); MONOCYTES % (AUTO) 7 % (0-12); NEUTROPHILS # (AUTO) 7.3 10^3/uL (1.8-7.8); NEUTROPHILS % (AUTO) 65 % (42-75); PLATELET COUNT 278 10^3/uL (130-400); WHITE BLOOD COUNT 11.1 10^3/uL (4.3-11.0)
[2022-04-14 23:04] LABS: BACTERIA,URINE FEW /HPF; RBC,URINE 0-2 /HPF; WBC,URINE RARE /HPF
[2022-04-14 23:08] LABS: AMPHETAMINE SCREEN, URINE POSITIVE (NEGATIVE); BARBITURATE SCREEN URINE NEGATIVE (NEGATIVE); BENZODIAZEPINES SCREEN URINE NEGATIVE (NEGATIVE); CANNABINOID SCREEN, URINE POSITIVE (NEGATIVE); COCAINE SCREEN URINE NEGATIVE (NEGATIVE); METHADONE STAT NEGATIVE (NEGATIVE); OPIATE SCREEN URINE NEGATIVE (NEGATIVE); OXYCODONE STAT NEGATIVE (NEGATIVE); PROPOXYPHENE STAT NEGATIVE (NEGATIVE); TRICYCLIC ANTIDEPRESSANTS SCRE NEGATIVE (NEGATIVE)
[2022-04-14 23:09] LABS: CHLORIDE 104 MMOL/L (98-107); SODIUM 139 MMOL/L (135-145)
[2022-04-14 23:10] LABS: AMYLASE 101 U/L (25-125); CALCIUM 8.8 MG/DL (8.5-10.1)
[2022-04-14 23:11] LABS: GLUCOSE 129 MG/DL (70-105); TOTAL PROTEIN 5.6 GM/DL (6.4-8.2)
[2022-04-14 23:12] LABS: CARBON DIOXIDE 27 MMOL/L (21-32)
[2022-04-14 23:13] LABS: BILIRUBIN,TOTAL 0.3 MG/DL (0.1-1.0)
[2022-04-14 23:15] LABS: ALKALINE PHOSPHATASE 77 U/L (40-136); CREATININE SERUM 1.32 MG/DL (0.60-1.30); GFR ESTIMATED 56
[2022-04-14 23:16] LABS: BUN/CREATININE RATIO 15
[2022-04-14 23:17] LABS: ERYTHROCYTE SEDIMENTATION RATE 33 MM/HR (0-20)
[2022-04-14 23:18] LABS: ALANINE AMINOTRANSFERASE 15 U/L (0-55); MAGNESIUM 1.9 MG/DL (1.6-2.4)
[2022-04-14 23:19] LABS: LIPASE 61 U/L (8-78)
[2022-04-15] VITALS (16 sets, daily range): BP systolic 101–171; BP diastolic 58–99
[2022-04-15] MEDS ORDERED: PROMETHAZINE INJ 25 MG/ML (PHENERGAN) AMP IVP ONE
[2022-04-15] MEDS ORDERED: diphenhydrAMINE 50 MG/ML INJ (BENADRYL) IVP ONE
[2022-04-15] MEDS ORDERED: AZITHROMYCIN IV STA (01:20)
[2022-04-15] MEDS ORDERED: cefTRIAXone 1 GM PRE-MIX 50 ML IV STA (01:20)
[2022-04-15] MEDS ORDERED: NS IV STA (01:20)
[2022-04-15] MEDS ORDERED: LACTATED RINGERS 1,000 ML IV ONE (01:30)
--- NOTE | 2022-04-15 01:39 | ED GU-Female ---
General Chief Complaint: Abdominal/GI Problems Stated Complaint: ABD PAIN,VAGINAL BLEEDING,VOMITING Nursing Triage Note: C/O INTERMITTANT SHARP GENERALIZED ABDOMINAL PAIN X3 DAYS. Source: patient (PT IS AN EXTREMELY POOR HISTORIAN AND APPEARS TO BE UNDER THE INFLUENCE OF SOME SUBSTANCE/S. ) History of Present Illness Date Seen by Provider: Apr 14, 2022 Time Seen by Provider: 22:32 Initial Comments PT ARRIVES VIA POV C/O GENERALIZED ABDOMINAL PAIN C/O VAGINAL BLEEDING C/O NAUSEA/VOMITING PT IS UNABLE TO STATE WHEN THESE SYMPTOMS BEGAN--EITHER DOES NOT ANSWER QUESTION, OR GIVES MULTIPLE CONFLICTING ANSWERS EACH TIME SHE IS ASKED. AT ONE POINT, SHE TOLD BOTH THE RN AND MYSELF THAT HER PAIN STARTED 3 DAYS AGO SHE IS UNABLE TO STATE WHEN THE VAGINAL BLEEDING STARTED, BUT AT ONE POINT SHE STATES THAT IT STARTED ABOUT THE SAME TIME THE PAIN STARTED AT ONE POINT, SHE STATES THE PAIN BEGAN AFTER SHE HAD ANAL SEX, BUT SHE ALSO HAD VAGINAL INTERCOURSE WELL ORAL INTERCOURSE. SHE IS UNABLE TO STATE IF THE VAGINAL BLEEDING BEGAN BEFORE OR AFTER INTERCOURSE. SHE DOES NOT ANSWER WHEN ASKED IF ANY OBJECTS WERE USED DURING INTERCOURSE. SHE IS UNABLE TO STATE WHEN HER LMP WAS--HER ANSWER IS "I CAN'T EXPLAIN IT" PT IS NOT ON CONTROL PT IS UNABLE TO STATE HOW MANY TIMES SHE HAS BEEN --GIVES CONFLICTING ANSWERS "3 OR 4" "4 OR 5" STATES SHE HAS HAD 3 LIVE BIRTHS, 1 STILL BORN, AND DOES NOT KNOW HOW MANY OTHER MISCARRIAGES SHE HAS HAD. SHE HAS HAD 1 . PT IS UNABLE TO STATE HOW MANY TIMES SHE HAS VOMITED, AND IS UNABLE TO STATE IF THERE HAS BEEN ANY HEMATEMESIS OR COFFEE-GROUND EMESIS. SHE IS UNABLE TO STATE WHEN HER LAST BM WAS OR IF SHE HAS HAD BLACK/BLOODY/TARRY STOOLS HAS NOT SOUGHT CARE UNTIL TONIGHT HAS NOT TAKEN ANYTHING FOR PAIN ON LATER DIRECT QUESTIONING ABOUT DRUG USE, SHE DOES ADMIT TO METHAMPHETAMINE AND MARIJUANA USE, BUT IS UNABLE TO ANSWER WHEN ASKED WHEN SHE LAST USED EITHER OF THEM OR HOW SHE USED THE METHAMPHETAMINES. SHE IS UNABLE TO STATE WHEN SHE LAST HAD ANY ALCOHOL. PT DOES HAVE A HISTORY OF HOMELESSNESS, SHE IS UNABLE TO STATE IF SHE IS STILL HOMELESS OR NOT. PCP: NONE Allergies and Home Medications Allergies Coded Allergies: Iodine and Iodide Containing Produc (Verified Allergy, Unknown, 08/24/16) latex (Verified Allergy, Unknown, 08/24/16) povidone-iodine (Verified Allergy, Unknown, 08/24/16) soap (Verified Allergy, Unknown, 08/24/16) Patient Home Medication List Home Medication List Reviewed: Yes No Active Prescriptions or Reported Meds Review of Systems Review of Systems Constitutional: other (VERY MINIMAL INFORMATION FROM PT) Gastrointestinal: see HPI Genitourinary: see HPI Past Gkzhgvs-Imedax-Wszeox Hx Patient Social History Tobacco Use?: Yes Tobacco type used: Cigarettes Smoking Status: Current Everyday Smoker Substance use?: Yes Substance type: Methamphetamine, Marijuana Substance frequency: Daily Alcohol Use?: Yes Alcohol Frequency: Rarely Pt feels they are or have been: No Immunizations Up To Date Tetanus Booster (TDap): Less than 5yrs First/Initial COVID19 Vaccinat: 2020 Second COVID19 Vaccination Luke: 2020 Third COVID19 Vaccination Date: 2020 Seasonal Allergies Seasonal Allergies: No Past Medical History Surgery/Hospitalization HX: C-SECT, CHOLECYSTECTOMY, HPV, ANXIETY, DEPRESSION, HEMMOHROID Surgeries: Yes ( X 1) Section, Gallbladder Respiratory: No Cardiac: No Neurological: No Last Menstrual Period: Apr 10, 2022 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) HIV/AIDS: No Genitourinary: No Gastrointestinal: No Musculoskeletal: No Endocrine: No HEENT: No Cancer: No Psychosocial: Yes (SUBSTANCE ABUSE) Anxiety, Depression Integumentary: No Blood Disorders: No Family Medical History ADDITIONAL SOCIAL HISTORY: PT IS HOMELESS OF 11/16/20 WAS IN [facility] 10/2020, THEN [facility] [place] AT DISMISSAL Physical Exam Vital Signs Vital Signs - First Documented 04/14/22 22:30 Temp 35.7 Pulse 84 Resp 16 B/P (MAP) 153/98 (116) Pulse Ox 98 O2 Delivery Room Air Capillary Refill : Less Than 3 Seconds Height, Weight, BMI Height: 5'5" Weight: 138lbs. oz. 62.532395wk; 17.00 BMI Method:Estimated General Appearance: WD/WN, thin, other (PT IS VERY UNCOOPERATIVE, SHE IS VERY DRAMATIC AND WAILING AND THRASHING ALL OVER WHEN ON ER CART, YET SHE WALKS SLOWLY AND BENT AT WAIST AND HOLDING LOWER ABDOMEN. SHE CONTINUES TO WAIL AND YELL CONSTANTLY. THEN WILL SUDDENLY FALL ASLEEP MID-SENTENCE. HER SPEECH IS RAPID AND ERRATIC AND VERY MUMBLED AND DIFFICULT TO UNDERSTAND. SHE IS DIRTY AND MALODOROUS, SHE APPEARS TO BE UNDER THE INFLUENCE OF SOME SUBSTANCE/S) HEENT: PERRL/EOMI Cardiovascular: regular rate, rhythm Respiratory: normal breath sounds Gastrointestinal: guarding, rebound, tenderness (DIFFUSE TENDERNESS. ); No hernia, No mass Pelvic: normal external exam; No discharge, No lesions; tender w/ cervical motion, tender adnexa, tender uterus, vaginal bleeding, other (THERE IS A VERY SCANT AMOUNT OF BLOOD IN VAGINAL CANAL, WITH NO ACTIVE BLEEDING FROM CERIVCAL OS. CERVIX IS NON-INFLAMED. THERE IS NO DISCHARGE NOTED. THERE IS DIFFUSE TENDERNESS ON BIMANUAL EXAM, WITH OUT LOCALIZED TENDERNESS. NO OBVIOUS MASSES OR FULLNESS TO ADNEXA. + CERVICAL MOTION TENDERNESS. ) Back: no CVA tenderness Extremities: normal inspection, normal capillary refill Neurologic/Psychiatric: no motor/sensory deficits, alert, other (BEHAVIOR AND MENTATION NOTED ABOVE. IS UNCLEAR HOW ORIENTED SHE IS TO TIME/DATE. POOR MEMORY. ) Skin: normal color, warm/dry; No ecchymosis Procedures/Interventions Suture Size: 4-0 Progress/Results/Core Measures Suspected Sepsis SIRS Temperature: Pulse: 84 Respiratory Rate: 16 Laboratory Tests 04/14/22 22:48: White Blood Count 11.1H 04/15/22 02:05: White Blood Count 16.5H Blood Pressure 153 /98 Mean: 116 Laboratory Tests 04/14/22 22:48: Creatinine 1.32H, Platelet Count 278, Total Bilirubin 0.3 04/15/22 02:05: Platelet Count 252 Results/Orders Lab Results Laboratory Tests Test 04/14/22 22:41 04/14/22 22:48 04/15/22 01:16 04/15/22 02:05 Range/Units Urine Color YELLOW Urine Clarity CLEAR Urine pH 7.5 5-9 Urine Specific [place] 1.025 H 1.016-1.022 Urine Protein 3+ H NEGATIVE Urine Glucose (UA) NEGATIVE NEGATIVE Urine Ketones NEGATIVE NEGATIVE Urine Nitrite NEGATIVE NEGATIVE Urine Bilirubin NEGATIVE NEGATIVE Urine Urobilinogen 0.2 < = 1.0 MG/DL Urine Leukocyte Esterase NEGATIVE NEGATIVE Urine RBC (Auto) 2+ H NEGATIVE Urine RBC 0-2 /HPF Urine WBC RARE /HPF Urine Squamous Epithelial Cells 5-10 /HPF Urine Crystals NONE /LPF Urine Bacteria FEW H /HPF Urine Casts NONE /LPF Urine Mucus NEGATIVE /LPF Urine Culture Indicated YES Urine Opiates Screen NEGATIVE NEGATIVE Urine Oxycodone Screen NEGATIVE NEGATIVE Urine Methadone Screen NEGATIVE NEGATIVE Urine Propoxyphene Screen NEGATIVE NEGATIVE Urine Barbiturates Screen NEGATIVE NEGATIVE Ur Tricyclic Antidepressants Screen NEGATIVE NEGATIVE Urine Phencyclidine Screen NEGATIVE NEGATIVE Urine Amphetamines Screen POSITIVE H NEGATIVE Urine Methamphetamines Screen POSITIVE H NEGATIVE Urine Benzodiazepines Screen NEGATIVE NEGATIVE Urine Cocaine Screen NEGATIVE NEGATIVE Urine Cannabinoids Screen POSITIVE H NEGATIVE White Blood Count 11.1 H 16.5 H 4.3-11.0 10^3/uL Red Blood Count 2.92 L 2.52 L 3.80-5.11 10^6/uL Hemoglobin 9.3 L 8.0 L 11.5-16.0 g/dL Hematocrit 27 L 24 L 35-52 % Mean Corpuscular Volume 92 96 80-99 fL Mean Corpuscular Hemoglobin 32 32 25-34 pg Mean Corpuscular Hemoglobin Concent 35 33 32-36 g/dL Red Cell Distribution Width 12.1 12.3 10.0-14.5 % Platelet Count 278 252 130-400 10^3/uL Mean Platelet Volume 10.8 11.0 9.0-12.2 fL Immature Granulocyte % (Auto) 1 % Neutrophils (%) (Auto) 65 42-75 % Lymphocytes (%) (Auto) 23 12-44 % Monocytes (%) (Auto) 7 0-12 % Eosinophils (%) (Auto) 3 0-10 % Basophils (%) (Auto) 1 0-10 % Neutrophils # (Auto) 7.3 1.8-7.8 10^3/uL Lymphocytes # (Auto) 2.6 1.0-4.0 10^3/uL Monocytes # (Auto) 0.8 0.0-1.0 10^3/uL Eosinophils # (Auto) 0.4 H 0.0-0.3 10^3/uL Basophils # (Auto) 0.1 0.0-0.1 10^3/uL Immature Granulocyte # (Auto) 0.1 0.0-0.1 10^3/uL Erythrocyte Sedimentation Rate 33 H 0-20 MM/HR Sodium Level 139 135-145 MMOL/L Potassium Level 4.0 3.6-5.0 MMOL/L Chloride Level 104 98-107 MMOL/L Carbon Dioxide Level 27 21-32 MMOL/L Anion Gap 8 5-14 MMOL/L Blood Urea Nitrogen 20 H 7-18 MG/DL Creatinine 1.32 H 0.60-1.30 MG/DL Estimat Glomerular Filtration Rate 56 BUN/Creatinine Ratio 15 Glucose Level 129 H 70-105 MG/DL Calcium Level 8.8 8.5-10.1 MG/DL Corrected Calcium 9.6 8.5-10.1 MG/DL Magnesium Level 1.9 1.6-2.4 MG/DL Total Bilirubin 0.3 0.1-1.0 MG/DL Aspartate Amino Transf (AST/SGOT) 19 5-34 U/L Alanine Aminotransferase (ALT/SGPT) 15 0-55 U/L Alkaline Phosphatase 77 40-136 U/L C-Reactive Protein High Sensitivity 0.47 0.00-0.50 MG/DL Total Protein 5.6 L 6.4-8.2 GM/DL Albumin 3.0 L 3.2-4.5 GM/DL Amylase Level 101 25-125 U/L Lipase 61 8-78 U/L Human Chorionic Gonadotropin, Quant [id number] H <5 MIU/ML Serum Test, Qualitative POSITIVE NEGATIVE Serum Alcohol < 10 <10 MG/DL Micro Results Microbiology 04/15/22 Genital Culture, Resulted Pending 04/15/22 LUPE Preparation - Final, Resulted 04/15/22 Wet Prep - Final, Resulted My Orders Orders - SHANNA KAY DO Ed Iv/Invasive Line Start (04/14/22 22:32) Monitor-Rhythm Ecg Trace Only (04/14/22 22:32) Alcohol (04/14/22 22:32) Amylase (04/14/22 22:32) Cbc With Automated Diff (04/14/22 22:32) Comprehensive Metabolic Panel (04/14/22 22:32) Hs C Reactive Protein (04/14/22 22:32) Drug Screen Stat (Urine) (04/14/22 22:32) Hcg,Qualitative Serum (04/14/22 22:32) Lipase (04/14/22 22:32) Magnesium (04/14/22 22:32) Ua Culture If Indicated (04/14/22 22:32) Erythrocyte Sedimentation Rate (04/14/22 22:32) Ed Iv/Invasive Line Start (04/14/22 22:32) Lactated Ringers (Lr 1000 Ml Iv Solution (04/14/22 22:45) Ondansetron Injection (Zofran Injectio (04/14/22 22:45) Hcg,Quantitative (04/14/22 22:55) Abo Rh Type (04/14/22 22:55) Urine Culture (04/14/22 22:41) Promethazine Injection (Phenergan Injec (04/15/22 00:00) Diphenhydramine Injection (Benadryl Inje (04/15/22 00:00) Rh Immune Globulin Rhophylac (04/15/22 00:00) Rhogam Administration (04/15/22 00:00) Neisseria Gonorrhea Swab (04/15/22 01:09) Chlam Dna Probe (04/15/22 01:09) Genital Culture (04/15/22 01:09) Wet Prep (04/15/22 01:09) Lupe Prep (04/15/22 01:09) Us Ob Single Fetus<14 [id number] (04/15/22 00:15) Azithromycin Injection (Zithromax Inject (04/15/22 01:20) Ceftriaxone 1 Gm Pre-Mix (Rocephin 1 Gm (04/15/22 01:20) Cbc No Diff (04/15/22 01:24) Ed Iv/Invasive Line Start (04/15/22 01:26) Lactated Ringers (Lr 1000 Ml Iv Solution (04/15/22 01:30) Fentanyl Inj (Sublimaze Injection) (04/15/22 02:00) Medications Given in ED Current Medications Medications Dose Ordered Sig/Michaela Route Start Time Stop Time Status Last Admin Dose Admin Diphenhydramine HCl 50 mg ONCE ONCE IVP 04/15/22 00:00 04/15/22 00:01 DC 04/15/22 00:06 50 MG Lactated Ringer's 1,000 ml @ 0 mls/hr Q0M ONCE IV 04/14/22 22:45 04/14/22 22:46 DC 04/14/22 22:50 0 MLS/HR Ondansetron HCl 4 mg ONCE ONCE IVP 04/14/22 22:45 04/14/22 22:46 DC 04/14/22 22:51 4 MG Promethazine HCl 25 mg ONCE ONCE IVP 04/15/22 00:00 04/15/22 00:01 DC 04/15/22 00:06 25 MG Vital Signs/I&O 04/14/22 04/15/22 04/15/22 22:30 03:15 03:28 Temp 35.7 37.2 Pulse 84 77 75 Resp 16 16 B/P (MAP) 153/98 (116) 101/58 (72) Pulse Ox 98 100 O2 Delivery Room Air Room Air Capillary Refill : Less Than 3 Seconds Blood Pressure Mean: 116 Progress Note : Progress Note GIVEN: -IV FLUIDS -IV ANTIBIOTICS, DUE TO RECENT UNPROTECTED SEX AND CURRENT SYMPTOMS. GENITAL CULTURES PENDING. -ANTI-EMETICS -PAIN MEDICATION -RHOGAM FOR BLOOD TYPE O NEGATIVE. 0015--MODULAR HOME [employer]W MEMBER HERE FOR PT. NO DETERIORATION IN PT'S CONDITION DURING ER STAY NO TACHYCARDIA OR HYPOTENSION NO FEVER NO HYPOXIA PT HAD NO IDEA SHE WAS . HAS NO IDEA WHEN LMP WAS. NO CONTROL. ON REVIEW OF PREVIOUS LAB, PT WAS ADMITTED IN NOVEMBER OF THIS YEAR, FOR METHAMPHETAMINE INTOXICATION HGB WAS CONSISTENTLY IN THE 14'S DURING THAT HOSPITAL STAY Diagnostic Imaging Comments OB ULTRASOUND--SUSPECTED ECTOPIC ON RIGHT, WITH SMALL AMOUNT OF FREE FLUID IN LEFT ADNEXA. PER RADIOLOGIST VIA PHONE AND VIA FAXED REPORT AT 0151 Reviewed: Reviewed by Me, Discussed w/Radiologist Departure Communication (Admissions) 0122--SPOKE WITH DR. WARNER, ACCEPTS PT FOR ADMIT. ORDERS NOTED. WILL DO SERIAL HEMOGLOBIN CHECKS, AND DR. WARNER IS TO BE NOTIFIED OF ANY DROP IN BP OR INCREASE IN HEART RATE, OR DROP IN HGB < 8. Impression Primary Impression: RIGHT ECTOPIC , WITH SUSPECTED RUPTURE Additional Impressions: Methamphetamine intoxication Anemia Marijuana abuse Disposition: ADMITTED INPATIENT Condition: Stable Admissions Decision to Admit Reason: Admit from ER (General) Decision to Admit/Date: Apr 15, 2022 Time/Decision to Admit Time: 01:25 Departure-Patient Inst. Referrals: NO,LOCAL PHYSICIAN (PCP/Family) Primary Care Physician Scripts No Active Prescriptions or Reported Meds SHANNA KAY DO Apr 15, 2022 01:39
[2022-04-15] MEDS ORDERED: fentaNYL INJ 100 MCG/2 ML AMP IVP ONE (02:00)
[2022-04-15 02:16] LABS: HEMATOCRIT 24 % (35-52); MEAN CORPUSCULAR HEMOGLOBIN 32 pg (25-34); MEAN CORPUSCULAR HGB CONC 33 g/dL (32-36); MEAN CORPUSCULAR VOLUME 96 fL (80-99); PLATELET COUNT 252 10^3/uL (130-400); WHITE BLOOD COUNT 16.5 10^3/uL (4.3-11.0)
[2022-04-15] MEDS ORDERED: NS IV 1000 ML 1,000 ML ONE (03:32)
[2022-04-15 04:22] LABS: BASOPHILS % (AUTO) 0 % (0-10); EOSINOPHILS # (AUTO) 0.1 10^3/uL (0.0-0.3); EOSINOPHILS % (AUTO) 1 % (0-10); LYMPHOCYTES # (AUTO) 1.6 10^3/uL (1.0-4.0); LYMPHOCYTES % (AUTO) 11 % (12-44); MEAN CORPUSCULAR HEMOGLOBIN 31 pg (25-34); MEAN CORPUSCULAR HGB CONC 33 g/dL (32-36); MEAN CORPUSCULAR VOLUME 96 fL (80-99); MEAN PLATELET VOLUME 11.1 fL (9.0-12.2); MONOCYTES # (AUTO) 0.9 10^3/uL (0.0-1.0); MONOCYTES % (AUTO) 6 % (0-12); NEUTROPHILS # (AUTO) 12.5 10^3/uL (1.8-7.8); NEUTROPHILS % (AUTO) 82 % (42-75); PLATELET COUNT 216 10^3/uL (130-400); WHITE BLOOD COUNT 15.2 10^3/uL (4.3-11.0)
[2022-04-15 04:35] LABS: HEMATOCRIT 20 % (35-52); HEMOGLOBIN 6.5 g/dL (11.5-16.0)
[2022-04-15 04:46] LABS: POTASSIUM 4.7 MMOL/L (3.6-5.0)
[2022-04-15 04:47] LABS: CALCIUM 8.2 MG/DL (8.5-10.1)
[2022-04-15 04:52] LABS: CREATININE SERUM 1.15 MG/DL (0.60-1.30)
--- NOTE | 2022-04-15 05:17 | History & Physical-Surgical ---
HPO-Surgical History of Present Illness Chief Complaint: C/O INTERMITTANT SHARP GENERALIZED ABDOMINAL PAIN X3 DAYS. Diagnosis/Surgical Indication: Hematoperitoneum, suspected ruptured ectopic , acute blood loss an Procedure: Diagnostic laparoscopy Date of Surgery: Apr 15, 2022 Weight (Pounds): 138 Height (Feet): 5 Height (Inches): 5 Allergies and Home Medications Allergies Coded Allergies: Iodine and Iodide Containing Produc (Verified Allergy, Unknown, 08/24/16) latex (Verified Allergy, Unknown, 08/24/16) povidone-iodine (Verified Allergy, Unknown, 08/24/16) soap (Verified Allergy, Unknown, 08/24/16) Patient Home Medication List Home Medication List Reviewed: Yes No Active Prescriptions or Reported Meds Past Kwhoviu-Djeiuv-Epmguy Hx Patient Social History Smoking Status: Current Everyday Smoker 2nd Hand Smoke Exposure: Yes Recent Hopitalizations: No Have you traveled recently?: No Alcohol Use?: Yes Substance type: Methamphetamine, Marijuana Pt feels they are or have been: No Tobacco type used: Cigarettes Immunizations Up To Date Tetanus Booster (TDap): Less than 5yrs Seasonal Allergies Seasonal Allergies: No Surgeries Yes ( X 1) Section, Gallbladder Respiratory No Cardiovascular No Neurological No Reproductive System Last Menstrual Period: Apr 10, 2022 Hx 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) HIV/AIDS: No Genitourinary No Gastrointestinal No Musculoskeletal No Endocrine History of Endocrine Disorders: No HEENT History of HEENT Disorders: No Cancer No Psychosocial History of Psychiatric Problem: Yes (SUBSTANCE ABUSE) Behavioral Health Disorders: Anxiety, Depression Integumentary History of Skin or Integumenta: No Blood Transfusions History of Blood Disorders: No Family Medical History Other Significan Family Hx: ADDITIONAL SOCIAL HISTORY: PT IS HOMELESS OF 11/16/20 WAS IN [facility] 10[facility]2020, [facility] [place] AT DISMISSAL Exam Vital Signs Vital Signs 04/15/22 05:05 Temp 37.2 Pulse 76 Resp 12 B/P (MAP) 131/78 (95) Pulse Ox 100 O2 Delivery Room Air Capillary Refill : Less Than 3 Seconds Labs Laboratory Tests Test 04/14/22 22:41 04/14/22 22:48 04/15/22 01:16 04/15/22 02:05 Range/Units Urine Color YELLOW Urine Clarity CLEAR Urine pH 7.5 5-9 Urine Specific [place] 1.025 H 1.016-1.022 Urine Protein 3+ H NEGATIVE Urine Glucose (UA) NEGATIVE NEGATIVE Urine Ketones NEGATIVE NEGATIVE Urine Nitrite NEGATIVE NEGATIVE Urine Bilirubin NEGATIVE NEGATIVE Urine Urobilinogen 0.2 < = 1.0 MG/DL Urine Leukocyte Esterase NEGATIVE NEGATIVE Urine RBC (Auto) 2+ H NEGATIVE Urine RBC 0-2 /HPF Urine WBC RARE /HPF Urine Squamous Epithelial Cells 5-10 /HPF Urine Crystals NONE /LPF Urine Bacteria FEW H /HPF Urine Casts NONE /LPF Urine Mucus NEGATIVE /LPF Urine Culture Indicated YES Urine Opiates Screen NEGATIVE NEGATIVE Urine Oxycodone Screen NEGATIVE NEGATIVE Urine Methadone Screen NEGATIVE NEGATIVE Urine Propoxyphene Screen NEGATIVE NEGATIVE Urine Barbiturates Screen NEGATIVE NEGATIVE Ur Tricyclic Antidepressants Screen NEGATIVE NEGATIVE Urine Phencyclidine Screen NEGATIVE NEGATIVE Urine Amphetamines Screen POSITIVE H NEGATIVE Urine Methamphetamines Screen POSITIVE H NEGATIVE Urine Benzodiazepines Screen NEGATIVE NEGATIVE Urine Cocaine Screen NEGATIVE NEGATIVE Urine Cannabinoids Screen POSITIVE H NEGATIVE White Blood Count 11.1 H 16.5 H 4.3-11.0 10^3/uL Red Blood Count 2.92 L 2.52 L 3.80-5.11 10^6/uL Hemoglobin 9.3 L 8.0 L 11.5-16.0 g/dL Hematocrit 27 L 24 L 35-52 % Mean Corpuscular Volume 92 96 80-99 fL Mean Corpuscular Hemoglobin 32 32 25-34 pg Mean Corpuscular Hemoglobin Concent 35 33 32-36 g/dL Red Cell Distribution Width 12.1 12.3 10.0-14.5 % Platelet Count 278 252 130-400 10^3/uL Mean Platelet Volume 10.8 11.0 9.0-12.2 fL Immature Granulocyte % (Auto) 1 % Neutrophils (%) (Auto) 65 42-75 % Lymphocytes (%) (Auto) 23 12-44 % Monocytes (%) (Auto) 7 0-12 % Eosinophils (%) (Auto) 3 0-10 % Basophils (%) (Auto) 1 0-10 % Neutrophils # (Auto) 7.3 1.8-7.8 10^3/uL Lymphocytes # (Auto) 2.6 1.0-4.0 10^3/uL Monocytes # (Auto) 0.8 0.0-1.0 10^3/uL Eosinophils # (Auto) 0.4 H 0.0-0.3 10^3/uL Basophils # (Auto) 0.1 0.0-0.1 10^3/uL Immature Granulocyte # (Auto) 0.1 0.0-0.1 10^3/uL Erythrocyte Sedimentation Rate 33 H 0-20 MM/HR Sodium Level 139 135-145 MMOL/L Potassium Level 4.0 3.6-5.0 MMOL/L Chloride Level 104 98-107 MMOL/L Carbon Dioxide Level 27 21-32 MMOL/L Anion Gap 8 5-14 MMOL/L Blood Urea Nitrogen 20 H 7-18 MG/DL Creatinine 1.32 H 0.60-1.30 MG/DL Estimat Glomerular Filtration Rate 56 BUN/Creatinine Ratio 15 Glucose Level 129 H 70-105 MG/DL Calcium Level 8.8 8.5-10.1 MG/DL Corrected Calcium 9.6 8.5-10.1 MG/DL Magnesium Level 1.9 1.6-2.4 MG/DL Total Bilirubin 0.3 0.1-1.0 MG/DL Aspartate Amino Transf (AST/SGOT) 19 5-34 U/L Alanine Aminotransferase (ALT/SGPT) 15 0-55 U/L Alkaline Phosphatase 77 40-136 U/L C-Reactive Protein High Sensitivity 0.47 0.00-0.50 MG/DL Total Protein 5.6 L 6.4-8.2 GM/DL Albumin 3.0 L 3.2-4.5 GM/DL Amylase Level 101 25-125 U/L Lipase 61 8-78 U/L Human Chorionic Gonadotropin, Quant [id number] H <5 MIU/ML Serum Test, Qualitative POSITIVE NEGATIVE Serum Alcohol < 10 <10 MG/DL Test 04/15/22 04:12 Range/Units White Blood Count 15.2 H 4.3-11.0 10^3/uL Red Blood Count 2.07 L 3.80-5.11 10^6/uL Hemoglobin 6.5 *L 11.5-16.0 g/dL Hematocrit 20 *L 35-52 % Mean Corpuscular Volume 96 80-99 fL Mean Corpuscular Hemoglobin 31 25-34 pg Mean Corpuscular Hemoglobin Concent 33 32-36 g/dL Red Cell Distribution Width 12.3 10.0-14.5 % Platelet Count 216 130-400 10^3/uL Mean Platelet Volume 11.1 9.0-12.2 fL Immature Granulocyte % (Auto) 0 % Neutrophils (%) (Auto) 82 H 42-75 % Lymphocytes (%) (Auto) 11 L 12-44 % Monocytes (%) (Auto) 6 0-12 % Eosinophils (%) (Auto) 1 0-10 % Basophils (%) (Auto) 0 0-10 % Neutrophils # (Auto) 12.5 H 1.8-7.8 10^3/uL Lymphocytes # (Auto) 1.6 1.0-4.0 10^3/uL Monocytes # (Auto) 0.9 0.0-1.0 10^3/uL Eosinophils # (Auto) 0.1 0.0-0.3 10^3/uL Basophils # (Auto) 0.0 0.0-0.1 10^3/uL Immature Granulocyte # (Auto) 0.1 0.0-0.1 10^3/uL Sodium Level 139 135-145 MMOL/L Potassium Level 4.7 3.6-5.0 MMOL/L Chloride Level 110 H 98-107 MMOL/L Carbon Dioxide Level 23 21-32 MMOL/L Anion Gap 6 5-14 MMOL/L Blood Urea Nitrogen 19 H 7-18 MG/DL Creatinine 1.15 0.60-1.30 MG/DL Estimat Glomerular Filtration Rate 66 BUN/Creatinine Ratio 17 Glucose Level 98 70-105 MG/DL Calcium Level 8.2 L 8.5-10.1 MG/DL General Appearance: Other (Disoriented and lethargic) Cardiovascular: Regular Rate Abdominal: Other (tender diffusely) Extremities: No Clubbing, No Cyanosis Psych/Mental Status: Other (slow to respond) Assessment/Plan Assessment and Plan Diagnosis: 32 yo w/ fluid in pelvis on US suggestive of hematoperitoneum + test QHCG of 11k Suspected ruptured ectopic(US read pending imaging unavailable) Acute blood loss anemia hgb 6 Methamphetamine + History of ilicit drug use High risk sexual behavior Lethargic Plan: Diagnostic laparoscopy any other indicated procedures Admission Diagnosis Admission Status: Observation ALANATALI Rylie SERRA Apr 15, 2022 05:17
[2022-04-15] MEDS ORDERED: BUPIVACAINE 0.5% 30 ML (SENSORCAINE) VIAL ONE (05:28)
[2022-04-15] MEDS ORDERED: LACTATED RINGERS 1,000 ML IV PRN (05:30)
[2022-04-15] MEDS ORDERED: fentaNYL INJ 100 MCG/2 ML AMP ONE (05:35)
[2022-04-15] MEDS ORDERED: LIDOCAINE PF 2% 5 ML (XYLOCAINE) VIAL ONE (05:35)
[2022-04-15] MEDS ORDERED: ROCURONIUM 10 MG/ML 5 ML SYRINGE IV ONE (05:35)
[2022-04-15] MEDS ORDERED: proPOfol 200 MG/20 ML (DIPRIVAN) VIAL IV ONE (05:35)
[2022-04-15] MEDS ORDERED: MIDAZOLAM 2 MG/2 ML (VERSED) VIAL ONE (05:35)
[2022-04-15] MEDS ORDERED: KETOROLAC 30 MG/ML VIAL ONE (05:50)
[2022-04-15] MEDS: LACTATED RINGERS 1,000 ML IV PRN ×2 (05:59→07:32)
[2022-04-15] MEDS ORDERED: SUCCINYLCHOLINE INJ 100 MG/5 ML SYR/VIAL ONE (06:14)
[2022-04-15] MEDS ORDERED: ONDANSETRON 4 MG/2 ML (SDV) Z0FRAN ONE (06:15)
[2022-04-15] MEDS ORDERED: NEOSTIGMINE (BLOXIVERZ ) 1 MG/1ML 10 ML VIAL ONE (07:09)
[2022-04-15] MEDS ORDERED: GLYCOPYRROLATE 0.2 MG/ML (ROBINUL) 2 ML VIAL ONE (07:09)
[2022-04-15] MEDS ORDERED: SEVOFLURANE (ULTANE) 15 ML INHAL SOLN ONE (07:27)
--- NOTE | 2022-04-15 07:36 | Diagnostic Imaging Report ---
PROCEDURE: US OB SINGLE FETUS <14 WKS. TECHNIQUE: Multiple real-time grayscale images were obtained over the gravid uterus in various projections. INDICATION: Pain and bleeding. FINDINGS: The uterus appeared normal. No intrauterine gestation. No endometrial abnormality. Homogenous endometrium is 9 mm in thickness. Normal right ovarian tissue was never clearly identified. There is a 1.6 x 0.8 cm cystic structure in the right adnexa of uncertain etiology, ectopic gestation cannot be entirely excluded. There is a small amount of pelvic free fluid showing no complexity. The left ovary normal. IMPRESSION: 1. No intrauterine gestation identified, non-identification of the right ovary, 1.6 x 0.8 cm cystic-like structure in the right adnexa of uncertain etiology and given the absence of intrauterine gestation, ectopic gestation cannot be entirely excluded, correlate with beta hCG. 2. Small volume free fluid showed no obvious complexity. 3. Normal left ovary and left adnexa with normal appearance of the uterus and endometrium. I agree with preliminary. Dictated by: Dictated on workstation # [id number]
[2022-04-15] MEDS ORDERED: morphine INJ 10 MG/ML 1ML (SYR OR VIAL) IVP ONE (07:45)
[2022-04-15] MEDS ORDERED: ONDANSETRON 4 MG/2 ML (SDV) Z0FRAN IVP PRN (07:45)
[2022-04-15] MEDS ORDERED: NS IV 500 ML 500 ML ONE (08:21)
--- NOTE | 2022-04-15 10:14 | Progress Note-Post Operative ---
Post-Operative Progess Note Surgeon (s)/Strike On Machine Operator (s) Surgeon Eddie Hogan DO Strike On Machine Operator: N/A Pre-Operative Diagnosis Hematoperitoneum, suspected ruptured ectopic , acute blood loss an Post-Operative Diagnosis Hematoperitoneum, ruptured ectopic , acute blood loss Procedure & Operative Findings Date of Procedure 04/15/22 Procedure Performed/Findings Diagnostic Laparoscopy with evacuation of hemaperitoneum, removal of ruptured ectopic and bilateral salpingectomy, lysis of adhesions Anesthesia Type General Estimated Blood Loss Estimated blood loss (mL): 2000 Specimens/Packing Specimens Removed Bilateral fallopian tubes JNO KELLEY CATCHER FILTER TIP Apr 15, 2022 10:14
[2022-04-15] MEDS ORDERED: ACHD5005 PO (10:24)
[2022-04-15] MEDS ORDERED: FERR325T18 PO (10:24)
[2022-04-15] MEDS ORDERED: IBUP-1780 PO (10:24)
--- NOTE | 2022-04-15 10:26 | Discharge Inst-Women's Service ---
Discharge Inst-Women's Serv Depart Medication/Instructions New, Converted or Re-Newed RX: Transmitted to Pharmacy Consults/Follow Up Additional Follow Up: Yes (2wk PO appt) Activity Activity: Activity as Tolerated Driving Instructions: No Driving for 1 Week NO SMOKING: NO SMOKING Nothing Inside Vagina: No Douching, No [place], No Tampons Diet Discharge Diet: No Restrictions Symptoms to Report to DrNoelle: Bleeding Excessive, Pain Increased, Fever Over 101 Degrees F, Vaginal Bleeding Increase For Any Problems or Questions: Contact Your Physician Skin/Wound Care Infection Signs and Symptoms: Increased Redness, Increased Drainage, Increased Swelling, Temperature Above 101 F Operative Area Clean and Dry: Keep Incision Clean/Dry Stitches/Boris/Dermabond: Dermabond Bathing Instructions: JON Esparza APRN Apr 15, 2022 10:26
--- NOTE | 2022-04-15 11:34 | Anesthesia-General Post-Op ---
General Patient Condition Mental Status/LOC: Same as Preop Cardiovascular: Satisfactory Nausea/Vomiting: Absent Respiratory: Satisfactory Pain: Controlled Complications: Absent Post Op Complications Complications None Follow Up Care/Instructions Patient Instructions None needed. Anesthesia/Patient Condition Patient Condition Patient was doing well in PACU with no complaints, stable vital signs, no apparent adverse anesthesia problems. She was hypertensive in PACU but with her methamphetamine positive status I did not want to give her any medication for that. Shanique Evans, CASINO ATTENDANT was going to pass that along in report to the nursing staff on the women's services floor. KASHIF MICHAELS DO Apr 15, 2022 11:33
--- NOTE | 2022-04-15 12:11 | OPERATIVE REPORT ---
PREOPERATIVE DIAGNOSES: 1. A 32-year-old female with hematoperitoneum. 2. Positive test and ultrasound suggestive of ruptured ectopic . POSTOPERATIVE DIAGNOSES: 1. A 32-year-old female with hematoperitoneum. 2. Positive test and ultrasound suggestive of ruptured ectopic . 3. Confirmed ruptured right ectopic tubal . PROCEDURES: 1. Laparoscopic lysis of adhesions, bilateral salpingectomy and removal of right fallopian tube, left fallopian tube with scarring and ectopic on the right side. 2. Evacuation of 2 liters hematoperitoneum. SPECIMEN SENT: Bilateral fallopian tubes. SURGEON: Eddie Hogan DO ANESTHESIA: General endotracheal. ESTIMATED BLOOD LOSS: Approximately 2 liters of blood emptied from the pelvis. URINE OUTPUT: 200 mL FLUIDS: 1800 mL lactated Ringer's solution. FINDINGS: Two liters of partially coagulated blood in the peritoneal cavity, a significantly scarred left fallopian tube and right fallopian tube suggestive of recent ruptured ectopic . INDICATIONS FOR PROCEDURE: This is a 32-year-old female is a patient who had presented to the Emergency Department with pain onset of 3 days ago, has significantly gotten worse in the past 3 to 4 hours and she presented at approximately 11:00 in the evening. The patient was found positive for methamphetamines and had an actions that were consistent with recent methamphetamine use. The patient did not tell us when the last time she ate was. Even when speaking with her, could not tell me how many children that she had had. I attempted to discuss with the patient her drop in hemoglobin from initial presentation of 9, down to 6, the urgency of proceeding with surgery, the patient was somewhat mildly responsive and gave me nod that she was going to be okay with having surgery. I was unable to demonstrate understanding of what type of surgery she was having with the patient; however, due to the urgency of the situation, a verbal consent was obtained, the patient was taken to the operating room. DESCRIPTION OF PROCEDURE: Once in the operating room, anesthesia was found to be adequate. She was placed in the dorsal lithotomy position, prepped and draped in a sterile fashion where a timeout was performed. A Pham catheter was placed using sterile technique. A weighted speculum was inserted into the patient's vagina, right angle retractor was used to visualize the cervix, which was grasped at 12 o'clock position using a long Allis clamp. I then placed a CricHQer uterine manipulator depth of 8 cm deploying the balloon. I removed all the other instruments from the patient's vagina, performed changed gloves and taken my attention to the abdomen where infraumbilically, I introduced a Veress needle to ensure correct placement was confirmed using saline drop test and opening pressure of 3 mmHg was noted. I proceed with insufflation using CO2 gas to maximum pressure of 15 mmHg, at which point I removed the Veress needle. I extended the incision to make it 5 mm and placed a 5 mm blunt laparoscopic trocar through the incision until intraperitoneal placement confirmed using the laparoscope. There was no evidence of damage from my entry site. There is significant amount of partially coagulated blood throughout the peritoneal cavity noted both in the upper and lower abdomen. I then as the patient was placed in steep Trendelenburg where I was able to visualize all the pelvic anatomy defined in my findings above. I placed a suprapubic trocar. This was a 12 mm trocar was placed under direct visualization laparoscope. Once this trocar was then placed, I used this to evacuate the vast majority of the hematoperitoneum using suction irrigation. There were also significant adhesions of the anterior uterus to the anterior abdominal wall. These had to be taken down using the LigaSure device. Once these adhesions were taken down, I am able to freely see bilateral fallopian tubes and ovaries. The ovaries appeared grossly normal, but the fallopian tubes on the left, it is scarred and on the right is damaged and ruptured and still having a small amount of bleeding noted from it. I decided to remove bilateral fallopian tubes at that point. I started the proximal isthmic portion on both fallopian tubes and take my dissection down the mesosalpinx using the LigaSure device, sealing, and cutting as I go amputating bilateral fallopian tubes from the surrounding blood supply. Both fallopian tubes were then removed through the suprapubic trocar site without difficulty. I continued to copiously irrigate the pelvis and continued to evacuate blood that is in the upper abdomen as well to the best of my ability at which point sufficient amount is removed, estimating approximately 2 liters of blood total. There was no active bleeding noted from any of my dissection planes. I then released insufflation and removed the suprapubic trocar under direct visualization of the laparoscope. The infraumbilical trocar was left in place to release insufflation. I also introduced 10 mL of 0.25% Marcaine in the peritoneal cavity for postoperative pain management. The fascia of the site is closed using 0 Vicryl suture in interrupted fashion. The skin was reapproximated using 4-0 Monocryl running subcuticular. Both sites were then sealed using Dermabond and bandage were placed over the incisions. Pham catheter and Kronner uterine manipulator were removed at the end of the procedure. The patient tolerated the procedure well and was taken to recovery in stable condition. Lap and sponge counts were correct at the end of the procedure. Instrument counts were correct as well. Job ID: [id number] DocumentID: [id number] Dictated Date: 04/15/2022 08:29:59 Supervisor Mails Date: 04/15/2022 12:08:00 Dictated By: DO JACQUELIN OCHOA
[2022-04-15 16:27] LABS: HEMOGLOBIN 9.7 g/dL (11.5-16.0)
== END 2022-04-15 19:45 | disposition home or self-care (01) ==
LOC: EDUNIT# 22:23 → ER 22:25 → WS 04-15 01:25
PROVIDERS: ADMIT Obstetrics & Gynecology; ATTEND Obstetrics & Gynecology
DX: O00.101 Right tubal pregnancy without intrauterine pregnancy (principal); D62 Acute posthemorrhagic anemia; F15.129 Other stimulant abuse with intoxication, unspecified; F12.10 Cannabis abuse, uncomplicated; F17.210 Nicotine dependence, cigarettes, uncomplicated; Z72.51 High risk heterosexual behavior; Z59.00 Homelessness unspecified
CPT/HCPCS: 59151; 76801; 80048; 80053; 80306; 81000; 82150; 83690; 83735; 84702; 84703; 85014; 85018; 85025 ×2; 85027; 85652; 86141; 86850; 86900 ×2; 86901 ×2; 86920; 87070; 87077; 87088; 87205; 87210; 87491; 87591; 88305; 93041; 96361; 96365; 96367; 96368; 96375; 99283; G0378; G0480; P9016; 36415; 80320